=== PATIENT | male | born 1995 | race Caucasian/White ===

== ENCOUNTER 2022-01-18 14:47 | Outpatient (CLI) | payer SELFPAY ==
[2022-01-18 22:24] LABS: Albumin* 4.8 g/dL (3.3-5.0)
[2022-01-18 22:25] LABS: Chloride* 105 mmol/L (96-114); Potassium* 4.8 mmol/L (3.6-5.1); Sodium* 138 mmol/L (135-149)
[2022-01-18 22:27] LABS: Bilirubin Total* 0.4 mg/dL (0.1-1.5); Carbon Dioxide* 27 mmol/L (20-32); Cholesterol* 191 mg/dL (90-199); Creatinine* 1.1 mg/dL (0.5-1.5); Estimated Glomerular Filt Rate 96 ml/min
[2022-01-18 22:28] LABS: Alanine Aminotransferase* 77 U/L (4-50); Alkaline Phosphatase* 96 U/L (40-150); Aspartate Amino Transferase* 44 U/L (12-35); Blood Urea Nitrogen* 17 mg/dL (5-24); Calcium* 9.2 mg/dL (8.4-10.6); Glucose* 93 mg/dL (60-115); Total Protein* 7.3 g/dL (6.0-8.3)
[2022-01-18 22:29] LABS: HDL Cholesterol* 36 mg/dL (>=40); LDL Cholesterol Calculated 55 mg/dL (<100); Triglycerides* 502 mg/dL (40-149)
[2022-01-18 22:41] LABS: Vitamin D 25 Hydroxy* 21 ng/mL (30-80)
[2022-01-18 22:55] LABS: TSH With Reflex to FT4* 0.673 uIU/mL (0.270-4.200)
[2022-01-18 23:03] LABS: HIV 1/2/P24 Combo Screen* Negative (Negative)
[2022-01-18 23:12] LABS: Hepatitis C Virus Antibody* Negative (Negative)
[2022-01-20 20:36] LABS: Rapid Plasma Reagin (RPR) Non Reactive (Non Reactive)
== END 2022-01-18 14:48 | disposition home or self-care (01) ==
PROVIDERS: PCP Family Medicine; Visit Provider Family Medicine
DX: Z00.00 Encounter for general adult medical examination without abnormal findings (principal); R53.83 Other fatigue; Z11.3 Encounter for screening for infections with a predominantly sexual mode of transmission; Z11.59 Encounter for screening for other viral diseases; Z13.6 Encounter for screening for cardiovascular disorders
CPT/HCPCS: 80053; 80061; 82306; 84443; 86592; 86703; 86803

== ENCOUNTER 2022-02-14 09:36 | Outpatient (CLI) | payer OTHER, SELFPAY ==
[2022-02-14 14:51] LABS: Chloride* 105 mmol/L (96-114); Potassium* 4.6 mmol/L (3.6-5.1); Sodium* 141 mmol/L (135-149)
[2022-02-14 14:53] LABS: Estimated Glomerular Filt Rate 107 ml/min
[2022-02-14 14:54] LABS: Blood Urea Nitrogen* 17 mg/dL (5-24); Calcium* 9.9 mg/dL (8.4-10.6); Carbon Dioxide* 28 mmol/L (20-32); Glucose* 76 mg/dL (60-115)
== END 2022-02-14 09:37 | disposition home or self-care (01) ==
LOC: LKVREF 09:37
PROVIDERS: PCP Family Medicine; Visit Provider Emergency Medicine
DX: Z01.818 Encounter for other preprocedural examination (principal)
CPT/HCPCS: 80048

== ENCOUNTER 2022-02-20 06:35 | Day surgery (SDC) | payer OTHER, SELFPAY ==
[2022-02-20] VITALS (7 sets, daily range): BP systolic 113–135; BP diastolic 68–93; PULSE 74–91; RESP 16; TEMP 36.6–36.7; O2SAT 95–99; BMI 35.9
[2022-02-20] MEDS: LACTATED RINGERS 1000 ML 1,000 ML 100 ML IV (07:30)
[2022-02-20] MEDS: SODIUM CHLORIDE 0.9 % (FLUSH) 10 ML SYRINGE IVF (07:30)
[2022-02-20 08:04] LABS: SARS Antigen* negative (Negative)
[2022-02-20] MEDS: MIDAZOLAM HCL 1 MG/ML inj IVP (08:07)
[2022-02-20] MEDS: fentaNYL 100 MCG/2 ML inj IVP (08:07)
--- NOTE | 2022-02-20 08:11 | SUR.PREOP ---
TIME?OUT:?0805 PT/RN/MDA?VERIFICATION?OF?SURGICAL?SITE,?PROCEDURE,?AND?CONSENT OBTAINED?PRIOR?TO?INVASIVE?PROCEDURE.
[2022-02-20] MEDS: CEFAZOLIN 2 GM in 0.9 % SODIUM CHLORIDE Mini-bag 100 ML IVPB (08:17)
--- NOTE | 2022-02-20 08:38 | PM.ORPRC ---
Procedure Note Date of procedure: 02/20/22 Procedure: PREOPERATIVE DIAGNOSIS: 1. Left dorsal wrist benign cyst (suspect ganglion cyst) POSTOPERATIVE DIAGNOSIS: 1. Left dorsal wrist benign cyst (suspect ganglion cyst) PROCEDURE: 1. Left dorsal wrist benign cyst open excision SURGEON: Jamaal Garcia MD. BISQUE KILN DRAWER: WESLY Hatfield - Of note, an assistant front desk manager was critical for this case to aid in patient positioning, tissue retraction, limb manipulation/positioning, patient safety, & closure. ANESTHESIA: Regional block plus MAC EBL: Less than 2 mL IMPLANTS: None TOURNIQUET: 9 minutes at 250 torr COMPLICATIONS: None evident INDICATIONS: The patient is a pleasant 27-year-old male who has experienced left dorsal wrist growth/cystic growth development over the course of number of months. The pain has progressively gotten worse. Nonoperative management has been tried but unsuccessful. Given the failure of nonoperative management, and how this affects daily life, surgery was recommended. DESCRIPTION OF PROCEDURE: Following a thorough discussion of risks, benefits, and alternatives consent was obtained and the operative extremity was marked. The patient was brought to the operating room and placed supine on the operating table. No antibiotics were administered as this was planned to be a local case only. Proper time-out was performed identifying proper patient, site, and procedure. The operative extremity was prepped and draped in the appropriate sterile fashion using ChloraPrep. The limb was exsanguinated and the tourniquet inflated. A longitudinal incision was made overlying the dorsal aspect of left wrist bisecting the space of cyst. Sharp incision through skin and blunt dissection through subcutaneous tissue allowed us to identify the cystic sac. At 1 point in the procedure, the sac was punctured and a clear, thick, viscous gelatinous fluid was evacuated. This is consistent with a ganglion cyst. The cyst was mobilized from the surrounding adhesed tissue and the stalk was identified to track down deep towards the dorsal carpus. The stalk was amputated at its base with bipolar cautery. This was sent for permanent pathology. At this stage, the tourniquet was deflated and hemostasis achieved. Closure was performed with 3-0 Vicryl and 4-0 Monocryl. Soft dressings were applied, and the patient was awoken/transferred to the recovery room in stable condition. PLAN: 1. Encourage elevation of the operative extremity. 2. Range of motion of the operative extremity/digits as tolerated. 3. Ibuprofen, acetaminophen and/or Percocet as needed for pain. 4. Follow up with PA visit in 12-16 days for wound check and suture removal.
--- NOTE | 2022-02-20 08:38 | W.ANESCHARGE ---
Anesthesia Charges Start Date/Time Anesthesia Start Date: 02/20/22 Anesthesia Start Time: 08:12 Stop Date/Time Anesthesia Stop Date: 02/20/22 Anesthesia Stop Time: 08:55 Summary Emergency: No
--- NOTE | 2022-02-20 09:01 | W.ANESCHARGE ---
Anesthesia Charges Start Date/Time Anesthesia Start Date: 02/20/22 Anesthesia Start Time: 08:12 Stop Date/Time Anesthesia Stop Date: 02/20/22 Anesthesia Stop Time: 08:55 Summary Emergency: No
--- NOTE | 2022-02-20 09:03 | P.NB_ITS ---
Nerve Block Nerve Block Time Seen by Provider: 08:08 Date Seen: 02/20/22 Type of block requested by surgeon for post-operative analgesia: axillary Side: left Time out performed: Yes Verification of patient name: Yes Verification of date of : Yes Site marking: site marked Name of person performing procedure: Yoshi Continuous monitoring Was continuous monitoring of O2 sat, B/P, hospital monitor, recorded every 15 minutes?: Yes Procedure Checklist: sterile prep, needles and gloves Ultrasound guided. Images saved: Yes Medications given in 5ml increments after negative aspiration: Lidocaine %: 2 mL: 20 Needle gauge: 22 Patient tolerated procedure well: Yes Additional comments: Needle noted adjacent to nerve Block Charges Block Charge (with Pro Fee): Brachial Plexus Use of Ultrasound Machine for Block: Yes- US Guidance/pain block
== END 2022-02-20 09:46 | disposition home or self-care (01) ==
PROVIDERS: PCP Family Medicine; Visit Provider Orthopaedic Surgery Sports Medicine
PROC: (CPT 25111; principal; 2022-02-20 08:00)
DX: M67.432 Ganglion, left wrist (principal)
CPT/HCPCS: 25111; 01810; 64415; 76942; 87426; 88304; J0690; J2250; J2704; J3010; J7120